=== PATIENT | male | born 2000 | race Caucasian/White ===

== ENCOUNTER 2022-12-30 18:07 | Emergency (ER) | payer OTHER, SELFPAY ==
[2022-12-30 18:31] VITALS: BP 114/82; PULSE 82; RESP 16; TEMP 36.9; O2SAT 100
--- NOTE | 2022-12-30 18:37 | ED.UPPEXIN ---
HPI - Extremity Injury (Upper) General Chief Complaint: Extremity Injury, Upper Stated Complaint: Cut on Hand Time Seen by Provider: 12/30/22 18:37 Source: patient Mode of arrival: ambulatory Limitations: no limitations History of Present Illness HPI narrative: 22-year-old male presented for complaint of laceration to left hand at the webspace between the thumb and index finger. Injury occurred just prior to arrival. He states he struck the hand between a couch and wall on moving a couch. He denies decreased range of motion to the fingers, numbness, tingling, weakness of the fingers. Bleeding is controlled. No treatment prior to arrival. Related Data Home Medications Medication Instructions Recorded Confirmed No Home Medications 12/30/22 12/30/22 Allergies Allergy/AdvReac Type Severity Reaction Status Date / Time No Known Allergies Allergy Verified 12/30/22 18:27 Review of Systems Review of Systems: CONSTITUTIONAL: Denies body aches, fever, chills, or sweats. EYES: Denies visual changes, redness, or discharge. ENT: Denies rhinorrhea, congestion CARDIOVASCULAR: Denies chest pain, palpitations, or edema. RESPIRATORY: Denies cough or dyspnea. GASTROINTESTINAL: Denies abdominal pain, nausea, vomiting, or diarrhea. SKIN: Left hand laceration MUSCULOSKELETAL: Denies back pain, joint pain, or myalgia. NEUROLOGIC: Denies headache, numbness, tingling, or weakness. [facility] Past Medical History Medical History (Updated 12/30/22 @ 19:15 by Isabela Ramirez, RICARDO) No pertinent past medical history Comments At time of signature, I have reviewed and agree with nursing past medical, surgical, social and family history unless otherwise noted. Please see nursing chart for further information. There is no relevant family history pertinent to the presenting complaint Exam Narrative: GENERAL: Well-appearing HEAD: Normocephalic, atraumatic. EYES: conjunctivae clear, and EOMI. ENT: Mucous membranes moist. Oropharynx without edema, erythema or lesions. NECK: Supple. No lymphadenopathy CHEST: Clear to auscultation. HEART: Regular rate and rhythm. SKIN: Warm, dry. Left hand 1.5 cm linear laceration to the webspace between the 1st and 2nd digit. Puncture site to palmar aspect of web space. Bleeding controlled. Full strength and range of motion to the 1st and 2nd digits. Cap refill <3seconds. NEURO: Alert and oriented x3. Course Course Emergency Course: Patient is aware of diagnosis, understands and agrees to treatment plan. Anticipatory guidance given. Patient agrees to follow-up as directed and is aware of reasons to seek care at the emergency department. Portions of this record may have been created with voice recognition software Level of Care: Express Care Visit Vital Signs Vital signs: Vital Signs Temperature 98.5 F 12/30/22 18:31 Pulse Rate 82 12/30/22 18:31 Respiratory Rate 16 12/30/22 18:31 Blood Pressure 114/82 12/30/22 18:31 Pulse Oximetry 100 12/30/22 18:31 Temperature 98.5 F 12/30/22 18:31 Pulse Rate 82 12/30/22 18:31 Respiratory Rate 16 12/30/22 18:31 Blood Pressure 114/82 12/30/22 18:31 Pulse Oximetry 100 12/30/22 18:31 Reviewed Procedures Laceration left hand: Date: 12/30/22 Size (cm): 1.5 Description: linear and clean Depth: simple, single layer Pre-repair: wound explored and irrigated ====== Skin Level ====== Skin layer closed with: nylon Size (cm): 5-0 Number of sutures: 2 Technique: simple, interrupted ====== Subcutaneous Layer ====== ====== Muscle Layer ====== ====== Tendon Layer ====== left hand 2: Depth: simple, single layer (puncture site) Pre-repair: wound explored and other (cleansed with wound cleanser) ====== Skin Level ====== Skin layer closed with: dermabond and steri strips ====== Subcutaneous Layer ==
== END 2022-12-30 19:27 | disposition home or self-care (01) ==
PROVIDERS: Emergency Provider Nurse Practitioner Family
DX: S61.412A Laceration without foreign body of left hand, initial encounter (principal); X58.XXXA Exposure to other specified factors, initial encounter
CPT/HCPCS: 12001; 99212; G0463